=== PATIENT | female | born 1960 | race Two or more races ===

== ENCOUNTER 2021-05-07 13:51 | Emergency (ER) | payer MEDICAID, OTHER ==
[~2021-05-07] VITALS: Ht 175.3 cm; Wt 90.7 kg
[2021-05-07 13:55] VITALS: BP 121/70
[2021-05-07 14:25] LABS: Basophils # (auto) 0.1 10 ^3/uL (0-0.2); Eosinophils # (auto) 0.3 10 ^3/uL (0-0.8); Hematocrit 33.6 % (36.0-46.0); Hemoglobin 11.1 g/dL (12.2-16.2); Lymphocytes # (auto) 2.4 10 ^3/uL (0.4-5.4); Lymphocytes % (auto) 26.5 % (10.0-50.0); Mean Corpuscular Hemoglobin 30.2 pg (28.0-32.0); Mean Corpuscular Hgb Conc. 32.9 g/dL (32.0-36.0); Mean Corpuscular Volume 91.7 fL (80.0-100.0); Monocytes # (auto) 0.5 10 ^3/uL (0-1.3); Monocytes % (auto) 5.7 % (0.0-12.0); Neutrophils # (auto) 5.9 10 ^3/uL (1.6-8.6); Neutrophils % (auto) 63.8 % (37.0-80.0); Nucleated Red Blood Cells % 0.1 %; Red Blood Cells 3.67 10^6/uL (4.0-5.20); Red Cell Distribution Width 13.1 % (11.8-14.3); White Blood Cell 9.2 10^3/uL (4.4-10.8)
[2021-05-07 14:41] LABS: INR 0.95 (0.9-1.15); Partial Thromboplastin Time 25.7 sec (23.6-33.0)
[2021-05-07 14:49] LABS: BUN/Creatinine Ratio 31.9; Calcium 8.7 mg/dL (8.5-10.1)
[2021-05-07 14:51] LABS: Urine Bacteria NONE SEEN /hpf (None Seen); Urine Blood 3+ /uL (Negative); Urine Specific Gravity 1.021 (1.001-1.035); Urine WBC 300 /hpf (0 - 5); Urine WBC Clumps PRESENT /hpf (None Seen)
[2021-05-07 14:52] LABS: Bilirubin, Total 0.2 mg/dL (0.2-1.0); Total Protein 7.4 g/dL (6.4-8.2)
[2021-05-07] MEDS ORDERED: HYDROcodone-ACET 10/325MG TAB PO ONE (15:00)
== END 2021-05-07 17:40 | disposition home or self-care (01) ==
LOC: ER 13:52
DX: N39.0 Urinary tract infection, site not specified (principal); N93.9 Abnormal uterine and vaginal bleeding, unspecified; N85.9 Noninflammatory disorder of uterus, unspecified; I10 Essential (primary) hypertension; Z90.89 Acquired absence of other organs; Z98.890 Other specified postprocedural states; Z98.51 Tubal ligation status; Z96.651 Presence of right artificial knee joint
CPT/HCPCS: 36415; 76830; 76856; 80053; 81001; 84702; 85025; 85610; 85730; 86850; 86900; 86901

== ENCOUNTER 2021-10-11 16:14 | Inpatient (IN) | payer MEDICAID ==
[~2021-10-11] VITALS: Ht 175.3 cm; Wt 103.9 kg
[2021-10-11] MEDS ORDERED: ONDANSETRON HCL 4 MG/2 ML VIAL IV ONE (16:45)
[2021-10-11] MEDS ORDERED: SODIUM CHLORIDE 0.9% 1,000 ML IVB ONE (16:45)
[2021-10-11] MEDS ORDERED: HYDROmorphone HCL 2 MG/ML VL IV ONE (16:45)
[2021-10-11 18:21] LABS: Basophils # (auto) 0 10 ^3/uL (0-0.2); Basophils % (auto) 0.4 % (0.0-2.0); Eosinophils # (auto) 0.1 10 ^3/uL (0-0.8); Eosinophils % (auto) 1.7 % (0.0-7.0); Hematocrit 30.2 % (36.0-46.0); Hemoglobin 10.3 g/dL (12.2-16.2); Lymphocytes # (auto) 0.4 10 ^3/uL (0.4-5.4); Lymphocytes % (auto) 5.4 % (10.0-50.0); Mean Corpuscular Hemoglobin 32.9 pg (28.0-32.0); Mean Corpuscular Hgb Conc. 34.2 g/dL (32.0-36.0); Mean Corpuscular Volume 96.1 fL (80.0-100.0); Monocytes # (auto) 0.5 10 ^3/uL (0-1.3); Monocytes % (auto) 6.6 % (0.0-12.0); Neutrophils # (auto) 6.7 10 ^3/uL (1.6-8.6); Neutrophils % (auto) 85.9 % (37.0-80.0); Nucleated Red Blood Cells % 0.1 %; Red Blood Cells 3.14 10^6/uL (4.0-5.20); Red Cell Distribution Width 17.9 % (11.8-14.3); White Blood Cell 7.8 10^3/uL (4.4-10.8)
[2021-10-11 18:29] LABS: Albumin 3.6 g/dL (3.4-5.0); BUN/Creatinine Ratio 22.8; Calcium 9.1 mg/dL (8.5-10.1); Potassium 4.1 mmol/L (3.5-5.1)
[2021-10-11 18:32] LABS: Bilirubin, Total 0.5 mg/dL (0.2-1.0); Total Protein 7.4 g/dL (6.4-8.2)
[2021-10-11] MEDS ORDERED: NITROGLYCERIN 0.4 MG SL TAB SL PRN (21:00)
[2021-10-11] MEDS ORDERED: MORPHINE SULFATE INJECTION 2 MG/ML SYRG IV PRN ×2 (21:00)
[2021-10-11 22:00] VITALS: BP 107/72
[2021-10-11] MEDS: HYDROmorphone HCL 2 MG/ML VL IV PRN (23:46)
[2021-10-12 05:00] VITALS: BP 104/55
[2021-10-12 05:59] LABS: Urine Bacteria FEW /hpf (None Seen); Urine Blood TRACE /uL (Negative); Urine Specific Gravity 1.013 (1.001-1.035); Urine WBC 199 /hpf (0 - 5); Urine WBC Clumps PRESENT /hpf (None Seen)
[2021-10-12] MEDS: HYDROmorphone HCL 2 MG/ML VL IV PRN ×4 (06:48→21:34)
[2021-10-12 06:49] LABS: Calcium 8.5 mg/dL (8.5-10.1); Potassium 4.3 mmol/L (3.5-5.1)
[2021-10-12 06:51] LABS: BUN/Creatinine Ratio 20.9
[2021-10-12] MEDS: ONDANSETRON HCL 4 MG/2 ML VIAL IV PRN ×3 (07:02→17:13)
[2021-10-12 07:08] LABS: Basophils # (auto) 0 10 ^3/uL (0-0.2); Hemoglobin 9.7 g/dL (12.2-16.2); Lymphocytes # (auto) 0.5 10 ^3/uL (0.4-5.4); Monocytes # (auto) 0.8 10 ^3/uL (0-1.3); Red Cell Distribution Width 17.5 % (11.8-14.3)
[2021-10-12 07:11] LABS: Basophils % (auto) 0.1 % (0.0-2.0); Eosinophils # (auto) 0.1 10 ^3/uL (0-0.8); Eosinophils % (auto) 0.6 % (0.0-7.0); Hematocrit 27.2 % (36.0-46.0); Lymphocytes % (auto) 5.5 % (10.0-50.0); Mean Corpuscular Hemoglobin 34.8 pg (28.0-32.0); Mean Corpuscular Hgb Conc. 35.8 g/dL (32.0-36.0); Mean Corpuscular Volume 97.4 fL (80.0-100.0); Monocytes % (auto) 8.3 % (0.0-12.0); Neutrophils # (auto) 7.9 10 ^3/uL (1.6-8.6); Neutrophils % (auto) 85.5 % (37.0-80.0); Red Blood Cells 2.79 10^6/uL (4.0-5.20); White Blood Cell 9.2 10^3/uL (4.4-10.8)
[2021-10-12] MEDS: cefTRIAXone 1GM/50ML D5W 50 ML IV SCH (08:37)
[2021-10-12] MEDS: ENOXAPARIN SOD 40 MG/0.4 ML SYRINGE SC SCH (08:37)
[2021-10-12 09:00] VITALS: BP 117/57
[2021-10-12 13:00] VITALS: BP 115/63
[2021-10-12 17:00] VITALS: BP 141/60
[2021-10-12] MEDS: ACETAMINOPHEN 325 MG TAB PO PRN (17:37)
[2021-10-12] MEDS: HYDROcodone-ACET 10/325MG TAB PO PRN (19:29)
[2021-10-12 21:41] VITALS: BP 103/39
[2021-10-13] MEDS: HYDROmorphone HCL 2 MG/ML VL IV PRN ×3 (01:43→11:07)
[2021-10-13 05:00] VITALS: BP 135/58
[2021-10-13 09:00] VITALS: BP 116/62
[2021-10-13] MEDS: cefTRIAXone 1GM/50ML D5W 50 ML IV SCH (10:06)
[2021-10-13] MEDS: ENOXAPARIN SOD 40 MG/0.4 ML SYRINGE SC SCH (10:07)
[2021-10-13] MEDS: ACETAMINOPHEN 325 MG TAB PO PRN ×2 (10:10→20:54)
[2021-10-13] MEDS: PIPERACILLIN-TAZOB 3.375GM 100 ML IV SCH ×2 (12:00→19:35)
[2021-10-13 13:00] VITALS: BP 111/70
[2021-10-13] MEDS: HYDROcodone-ACET 10/325MG TAB PO PRN ×2 (13:14→19:42)
[2021-10-13 17:00] VITALS: BP 106/57
[2021-10-13 22:00] VITALS: BP 109/61
[2021-10-14] MEDS: PIPERACILLIN-TAZOB 3.375GM 100 ML IV SCH ×4 (00:23→19:52)
[2021-10-14] MEDS: HYDROmorphone HCL 2 MG/ML VL IV PRN ×4 (03:04→17:39)
[2021-10-14 05:00] VITALS: BP 118/57
[2021-10-14 09:00] VITALS: BP 111/62
[2021-10-14 13:00] VITALS: BP_SYST 100; BP_SYST 95; BP_DIAS 57
[2021-10-14] MEDS: HYDROcodone-ACET 10/325MG TAB PO PRN ×2 (13:09→20:52)
[2021-10-14] MEDS: ENOXAPARIN SOD 40 MG/0.4 ML SYRINGE SC SCH (15:18)
[2021-10-14 17:00] VITALS: BP 109/60
[2021-10-14] MEDS ORDERED: POLYETHYLENE GLYCOL 17 GM PWDR PO PRN (17:30)
[2021-10-14 22:00] VITALS: BP 108/68
[2021-10-15] MEDS: PIPERACILLIN-TAZOB 3.375GM 100 ML IV SCH ×2 (00:09→06:09)
[2021-10-15 05:00] VITALS: BP 132/78
[2021-10-15 05:22] LABS: Basophils # (auto) 0 10 ^3/uL (0-0.2); Eosinophils # (auto) 0.3 10 ^3/uL (0-0.8); Lymphocytes # (auto) 0.5 10 ^3/uL (0.4-5.4); Mean Corpuscular Hgb Conc. 35.3 g/dL (32.0-36.0); Monocytes # (auto) 0.4 10 ^3/uL (0-1.3); Red Cell Distribution Width 15.7 % (11.8-14.3)
[2021-10-15 05:24] LABS: Basophils % (auto) 0.6 % (0.0-2.0); Eosinophils % (auto) 9.1 % (0.0-7.0); Hematocrit 23.2 % (36.0-46.0); Hemoglobin 8.2 g/dL (12.2-16.2); Lymphocytes % (auto) 18.9 % (10.0-50.0); Mean Corpuscular Hemoglobin 34.4 pg (28.0-32.0); Mean Corpuscular Volume 97.4 fL (80.0-100.0); Monocytes % (auto) 14.6 % (0.0-12.0); Neutrophils # (auto) 1.6 10 ^3/uL (1.6-8.6); Neutrophils % (auto) 56.8 % (37.0-80.0); Red Blood Cells 2.38 10^6/uL (4.0-5.20); White Blood Cell 2.8 10^3/uL (4.4-10.8)
[2021-10-15 05:40] LABS: BUN/Creatinine Ratio 32.2; Calcium 8.9 mg/dL (8.5-10.1); Magnesium 2.2 mg/dL (1.6-2.6); Potassium 4.3 mmol/L (3.5-5.1)
[2021-10-15 08:59] VITALS: BP 139/76
[2021-10-15] MEDS ORDERED: AMOX500C2 PO (09:25)
== END 2021-10-15 12:26 | disposition left against medical advice (07) | DRG 466 ==
LOC: ER 16:14 → TELE 20:54 → TELE-CENTR 22:43
PROVIDERS: ADMIT Hospitalist; ATTEND Internal Medicine
DX: T83.012A Breakdown (mechanical) of nephrostomy catheter, initial encounter (principal); N13.6 Pyonephrosis; B95.2 Enterococcus as the cause of diseases classified elsewhere; C53.9 Malignant neoplasm of cervix uteri, unspecified; I10 Essential (primary) hypertension; Z20.822 Contact with and (suspected) exposure to COVID-19; Z85.41 Personal history of malignant neoplasm of cervix uteri; Y73.2 Prosthetic and other implants, materials and accessory gastroenterology and urology devices associated with adverse incidents; Y92.89 Other specified places as the place of occurrence of the external cause; Z90.49 Acquired absence of other specified parts of digestive tract; Z98.51 Tubal ligation status; Z93.6 Other artificial openings of urinary tract status; Z53.29 Procedure and treatment not carried out because of patient's decision for other reasons
CPT/HCPCS: 36415; 74176; 80048; 80053; 81001; 82150; 83690; 83735; 85025; 87040; 87086; 87088; 87186; 87426; 96365; 96372; 96375; G0378; J0696; J2405; J2543

== ENCOUNTER 2024-01-24 17:26 | Inpatient (IN) | payer MEDICAID ==
[~2024-01-24] VITALS: Ht 172.7 cm; Wt 81.1 kg
[~2024-01-24 17:26] MED LIST: AMOX500C2 PO
[2024-01-24 18:32] LABS: Chloride 105 mmol/L (98-107); Potassium 3.9 mmol/L (3.5-5.1); Sodium 141 mmol/L (136-145)
[2024-01-24 18:33] LABS: Anion Gap 3 (5-15); Calcium 9.5 mg/dL (8.5-10.1); Carbon Dioxide 33 mmol/L (20-30)
[2024-01-24 18:38] LABS: BUN/Creatinine Ratio 23.5 (10.0-20.0); Blood Urea Nitrogen 24 mg/dL (9-23); Glucose 146 mg/dL (74-106)
[2024-01-24 18:42] LABS: Basophils # (auto) 0 10 ^3/uL (0-0.2); Basophils % (auto) 0.8 % (0.0-2.0); Eosinophils # (auto) 0.2 10 ^3/uL (0-0.8); Eosinophils % (auto) 3.2 % (0.0-7.0); Hematocrit 35.4 % (36.0-46.0); Hemoglobin 11.9 g/dL (12.2-16.2); Lymphocytes % (auto) 19.6 % (10.0-50.0); Mean Corpuscular Hemoglobin 31.9 pg (28.0-32.0); Mean Corpuscular Hgb Conc. 33.6 g/dL (32.0-36.0); Mean Corpuscular Volume 94.9 fL (80.0-100.0); Monocytes # (auto) 0.4 10 ^3/uL (0-1.3); Monocytes % (auto) 8.4 % (0.0-12.0); Neutrophils # (auto) 3.5 10 ^3/uL (1.6-8.6); Nucleated Red Blood Cells % 0.2 %; Red Blood Cells 3.73 10^6/uL (4.0-5.20); Red Cell Distribution Width 15.8 % (11.8-14.3); White Blood Cell 5.1 10^3/uL (4.4-10.8)
[2024-01-24 19:21] LABS: Urine Bacteria None Seen /hpf (None Seen)
[2024-01-24 19:44] LABS: Urine Blood Negative /uL (Negative); Urine Clarity Clear (Clear); Urine Color Light-Yellow (Yellow); Urine Protein, UAD Negative (Negative); Urine Specific Gravity 1.023 (1.001-1.035); Urine Urobilinogen Normal (Negative); Urine WBC 22 /hpf (0 - 5); Urine pH 5.5 (5.0-9.0)
[2024-01-24] MEDS: HYDROcodone-ACET 10/325MG TAB PO ONE (20:15)
[2024-01-24] MEDS ORDERED: ONDANSETRON HCL 4 MG/2 ML VIAL IV PRN (22:30)
[2024-01-24] MEDS ORDERED: ACETAMINOPHEN 325 MG TAB PO PRN (22:30)
[2024-01-24] MEDS ORDERED: TEMAZEPAM 15 MG CAP PO PRN (22:30)
[2024-01-24] MEDS ORDERED: ALBUTEROL SULF 2.5 MG/0.5ML(0.5%) NEB SOLN NEB PRN (22:30)
[2024-01-24 22:58] VITALS: BP 110/71; PULSE 82; RESP 18; TEMP 97.5; O2SAT 96
[2024-01-24 23:00] VITALS: PULSE 70; RESP 14; O2SAT 94; O2SAT 95
[2024-01-25] VITALS (12 sets, daily range): BP systolic 107–141; BP diastolic 17–91; PULSE 17–84; RESP 16–90; TEMP 97–98.3; O2SAT 90–98
[2024-01-25] MEDS: HYDROcodone-ACET 10/325MG TAB PO PRN ×2 (00:06→17:18)
[2024-01-25] MEDS ORDERED: AMIT25TA20 PO (01:04)
[2024-01-25] MEDS ORDERED: ATEN-60 PO (01:04)
[2024-01-25] MEDS ORDERED: HYDR-4798 PO (01:04)
[2024-01-25 07:04] LABS: Calcium 9.3 mg/dL (8.5-10.1); Chloride 106 mmol/L (98-107); Potassium 4.1 mmol/L (3.5-5.1); Sodium 140 mmol/L (136-145)
[2024-01-25 07:05] LABS: Anion Gap 5 (5-15); Carbon Dioxide 29 mmol/L (20-30)
[2024-01-25 07:10] LABS: BUN/Creatinine Ratio 20.4 (10.0-20.0); Blood Urea Nitrogen 19 mg/dL (9-23); Glucose 100 mg/dL (74-106)
[2024-01-25] MEDS: IOHEXOL 350 MG/ML 100ML IJ ONE (07:37)
[2024-01-25] MEDS: LISINOPRIL 5 MG TAB PO SCH (09:47)
[2024-01-25] MEDS: ENOXAPARIN SOD 40 MG/0.4 ML SYRINGE SC SCH (09:48)
[2024-01-25] MEDS: ATENOLOL 25 MG TAB PO SCH (09:50)
[2024-01-25] MEDS ORDERED: PREG200C19 PO (13:02)
[2024-01-25] MEDS: PREGABALIN 25 MG CAP PO SCH (17:03)
[2024-01-26 01:00] VITALS: BP 135/72; PULSE 74; RESP 20; TEMP 99.3; O2SAT 90
[2024-01-26] MEDS: PNEUMOCOCCAL VACC POLYS 25 MCG/0.5 ML VIAL IM ONE (01:00)
[2024-01-26 05:00] VITALS: BP 138/78; PULSE 78; RESP 20; TEMP 98.8; O2SAT 90
[2024-01-26 07:33] LABS: Basophils # (auto) 0 10 ^3/uL (0-0.2); Basophils % (auto) 1.1 % (0.0-2.0); Eosinophils # (auto) 0.2 10 ^3/uL (0-0.8); Eosinophils % (auto) 5.2 % (0.0-7.0); Hematocrit 37.1 % (36.0-46.0); Hemoglobin 12.3 g/dL (12.2-16.2); Lymphocytes # (auto) 1.1 10 ^3/uL (0.4-5.4); Lymphocytes % (auto) 24.8 % (10.0-50.0); Mean Corpuscular Hemoglobin 31.2 pg (28.0-32.0); Mean Corpuscular Volume 94.5 fL (80.0-100.0); Monocytes # (auto) 0.5 10 ^3/uL (0-1.3); Monocytes % (auto) 11.5 % (0.0-12.0); Neutrophils # (auto) 2.5 10 ^3/uL (1.6-8.6); Neutrophils % (auto) 57.4 % (37.0-80.0); Nucleated Red Blood Cells % 0.4 %; Red Blood Cells 3.93 10^6/uL (4.0-5.20); Red Cell Distribution Width 15.2 % (11.8-14.3); White Blood Cell 4.4 10^3/uL (4.4-10.8)
[2024-01-26 07:34] LABS: Alanine Aminotransferase 18 U/L (7-40); Alkaline Phosphatase 77 U/L (46-116); Anion Gap 3 (5-15); BUN/Creatinine Ratio 20.2 (10.0-20.0); Blood Urea Nitrogen 20 mg/dL (9-23); Calcium 9.7 mg/dL (8.5-10.1); Carbon Dioxide 31 mmol/L (20-30); Chloride 105 mmol/L (98-107); Glucose 114 mg/dL (74-106); Potassium 4.5 mmol/L (3.5-5.1); Sodium 139 mmol/L (136-145)
[2024-01-26 07:35] LABS: Albumin 4.2 g/dL (3.2-4.8); Aspartate Aminotransferase 9 U/L (13-40); Bilirubin, Total 0.3 mg/dL (0.2-1.0); Total Protein 6.7 g/dL (5.7-8.2)
[2024-01-26 08:00] VITALS: PULSE 88; RESP 18; O2SAT 97
[2024-01-26 09:00] VITALS: BP 112/70; PULSE 69; RESP 18; TEMP 98.2; O2SAT 100
[2024-01-26] MEDS: DOCUSATE SOD 100 MG CAP PO SCH (09:51)
[2024-01-26] MEDS: POLYETHYLENE GLYCOL 17 GM PWDR PO SCH (10:00)
[2024-01-26] MEDS ORDERED: DOCU-265 PO (11:21)
[2024-01-26 12:32] VITALS: BP 121/63; PULSE 83; RESP 18; TEMP 97.6; O2SAT 94
[2024-01-26 13:00] VITALS: BP 130/69; PULSE 60; RESP 18; TEMP 98.8; O2SAT 93
== END 2024-01-26 15:40 | disposition home or self-care (01) | DRG 694 ==
LOC: EDBD 17:26 → ER 17:26 → OVERFLOW 22:50 → WEST WING 01-25 00:33
PROVIDERS: ADMIT Nurse Practitioner; ATTEND Internal Medicine
DX: C77.9 Secondary and unspecified malignant neoplasm of lymph node, unspecified (principal); N17.0 Acute kidney failure with tubular necrosis; R06.03 Acute respiratory distress; C53.9 Malignant neoplasm of cervix uteri, unspecified; I10 Essential (primary) hypertension; E66.3 Overweight; K59.00 Constipation, unspecified; Z87.442 Personal history of urinary calculi; Z96.659 Presence of unspecified artificial knee joint; Z68.27 Body mass index [BMI] 27.0-27.9, adult
CPT/HCPCS: 36415; 70450; 71045; 71275; 74018; 80048; 80053; 81001; 84443; 84484; 85025; 85379; G0378